=== PATIENT | female | born 1965 | race Caucasian/White ===

== ENCOUNTER 2017-02-06 12:13 | Emergency (ER) | payer BC ==
[2017-02-06] MEDS ORDERED: ASPIRIN 81 MG TAB.CHEW PO ONE (12:25)
[2017-02-06] MEDS ORDERED: ASPIRIN 81 MG TAB.CHEW ONE (12:34)
--- NOTE | 2017-02-06 12:37 | ERNOTE ---
Medical Problem HPI - Narrative Date of Service: 02/06/17 - General Time Seen by Provider: 02/06/17 12:15 Source: patient Exam Limitations: no limitations - Immun/Allergies/Home Medications Allergies/Adverse Reactions: Allergies No Known Allergies Allergy (Unverified 02/06/17 12:28) Home Medications: HOME MEDICATIONS Cyclobenzaprine HCl [Flexeril] 10 mg PO TID PRN #30 tab 02/06/17 [Last Taken Unknown] Naproxen [Naprosyn] 500 mg PO BID PRN #60 tab 02/06/17 [Last Taken Unknown] Sulfamethoxazole/Trimethoprim [Bactrim Ds] 1 tab PO BID #28 tab 02/06/17 [Last Taken Unknown] - History of Present History Narrative: Pt. comes in from [facility] with c/o L arm tingling with post neck and shoulder pain and L post rib pain. Pt. states that this has occurred for the past 24 hours and states that she has has L axillary fullness for a year without these other symptoms and was wondering if it is connected. At the [facility] pt. was hypertensive. Pt. denies any past history other than basal cell carcinoma of her L forearm. Review of Systems - Review of Systems Constitutional: Present: no symptoms reported. Absent: recent illness, fever, chills, weakness, fatigue EYE: Present: no symptoms reported ENT: Present: no symptoms reported Respiratory: Present: no symptoms reported. Absent: shortness of breath, cough , wheezing Cardiology: Present: no symptoms reported Gastrointestinal/Abdominal: Present: no symptoms reported Genitourinary: Present: no symptoms reported Musculoskeletal: Present: back pain - L post ribcage not reproducible, neck pain - posterior L, joint pain - L post shoulder Neurological: Present: tingling - L arm. Absent: weakness All Other Systems: All systems neg except as marked - Patient's Past Medical History Patient History - Medical: No pertinent hx Patient History - Cardiac/Respiratory: No pertinent hx Physical Exam - Physical Exam General Appearance: Present: wd/wn, alert, no apparent distress Head Exam: Present: normal inspection, no evidence of injury Eye Exam: Normal inspection: bilateral, PERRL: bilateral, EOMI: bilateral Ears, Nose, Throat: Present: normal ENT inspection, normal pharynx Neck: Present: normal inspection, nontender. Absent: lymphadenopathy (R), lymphadenopathy (L) Respiratory: Present: no respiratory distress, normal breath sounds, no accessory muscle use, chest nontender, lungs clear Cardiovascular/Chest: Present: regular rate, rhythm, no murmur, normal peripheral pulses Gastrointestinal/Abdominal: Present: normal bowel sounds, nontender, nondistended, soft, no organomegaly Back Exam: Present: normal inspection, normal range of motion, no CVA tenderness , no vertebral tenderness, other - no reproducible pain Extremity Exam: Present: non-tender, normal range of motion, other - L axillary edema not lymphadenopathy Neurological Exam: Present: alert, oriented, normal mood/affect, no motor/ sensory deficits Skin Exam: Present: normal color, warm/dry. Absent: pallor, skin rash ED Progress - Date and Time Seen: Date and Time: 02/06/17 16:[address] Bautista at [facility] and he agrees with POC and will see pt. when she makes appointment. - Results and Orders Patient's Lab Results:: I have reviewed the patient's lab results. - Vital Signs Patient's Vital Signs:: I have reviewed the patient's vital signs. - EKG EKG: NSR, nonspecific ST T wave changes EKG read: Reviewed by me EKG Comments: interp by Dr Pepper - X-Ray X-Ray #1 X-Ray: c-spine Interpretation: Reviewed by me X-ray Comments: IMPRESSION: 1. Mild prevertebral soft tissue prominence anterior to the C1-C2 level. Consider possible inflammatory arthropathy of the atlantodens interval, versus tendinitis of the longus coli muscle. In the setting of acute trauma, consider soft tissue/ligamentous injury. 2. C4-C5 and C6-C7 level degenerative disc disease. 3. HARPER image limited by positioning. 4. Left neural foraminal compromise by uncovertebral osteophytes at C5-C6. X-Ray #2 X-Ray: chest Interpretation: Reviewed by me X-ray Comments: no acute process - CT/Ultrasound CT/Ultrasound Narrative: US of venous and arterial system of MAURO arm without abnormality - Progress/Reassessment Progress:: Unchanged Departure - Departure Clinical Impression: Cervical radiculopathy at C6 UTI (urinary tract infection) Qualifiers: Urinary tract infection type: acute cystitis Hematuria presence: without hematuria Qualified Code(s): N30.00 - Acute cystitis without hematuria Disposition: Home self-care Condition: Good Instructions: Cervical Radiculopathy, [id number] Additional Instructions: If you do not hear from us please call Dr Pastor's office in [place] directly at [phone] Referrals: Estiven Pepper DO [Emergency Room Physician] - Prescriptions: Cyclobenzaprine HCl [Flexeril] 10 mg PO TID PRN #30 tab PRN Reason: MUSCLE SPASMS Naproxen [Naprosyn] 500 mg PO BID PRN #60 tab PRN Reason: Pain Sulfamethoxazole/Trimethoprim [Bactrim Ds] 1 tab PO BID #28 tab
[2017-02-06 12:44] LABS: Hematocrit 39.1 % (37.0-47.0); Hemoglobin 12.8 gm/dL (12.5-16.0); Mean Cell Volume 87.5 fl (78-100); Mean Corpuscular Hemoglobin 28.6 pg (27-31); Mean Corpuscular Hgb Conc 32.7 g/dl (32-36); Mean Platelet Volume 9.3 fl (6.0-9.5); Neutrophil # 4.1 K/mm3 (1.3-6.0); Neutrophil % 61.1 % (42-75.0); Platelet Count 270 K/mm3 (150-450); Red Blood Count 4.47 M/mm3 (4.2-5.4); Red Cell Distribution Width 12.4 % (11.5-14.0); White Blood Count 6.7 K/mm3 (4.0-10.5)
[2017-02-06 12:56] LABS: Urine Bilirubin Negative (NEGATIVE); Urine Ketone Negative (NEGATIVE); Urine Nitrite Negative (NEGATIVE); Urine Protein Negative (NEGATIVE); Urine Specific Gravity <=1.005 SP.GR. (1.005-1.010); Urine Urobilinogen Normal (NORMAL)
[2017-02-06 13:01] LABS: ALT 21 U/L (19-67); AST 16 U/L (0-48); Albumin * 4.1 gm/dl (3.4-5.0); Alkaline Phosphatase * 79 U/L (50-170); Anion Gap 15.8 mmol/L (6.8-13.8); BUN/Creatinine Ratio 11.7 (9.0-21.6); Bilirubin, Total 0.5 mg/dL (0.0-1.1); Blood Urea Nitrogen 7 mg/dL (3-23); Ca. Corrected For Albumin 8.7 mg/dL (8.4-10.2); Calcium * 9.1 mg/dL (7.9-10.9); Carbon Dioxide 26.5 mmol/L (24-32.6); Chloride 104 mmol/L (97-106); Glucose * 94 mg/dL (70-110); Potassium 3.3 mmol/L (3.4-4.6); Sodium 143 mmol/L (132-142); Total Protein 7.7 gm/dL (6.2-8.2); Troponin I Less than 0.017 ng/ml (0.00-0.10)
[2017-02-06 13:05] LABS: Urine Appearance Slightly Cloudy; Urine Bacteria 1+; Urine Blood 5 /ul (NEGATIVE); Urine Color Pale Yellow; Urine RBC 0-5 /hpf (0-5); Urine WBC 0-5 /hpf (0-5)
[2017-02-06] MEDS ORDERED: ORPHENADRINE CITRATE 30 MG/ML VIAL IM ONE (14:26)
[2017-02-06] MEDS ORDERED: KETOROLAC TROMETHAMINE 60 MG/2 ML VIAL IM ONE ×2 (14:26→14:27)
[2017-02-06] MEDS ORDERED: ORPHENADRINE CITRATE 30 MG/ML VIAL ONE (14:28)
[2017-02-06 15:04] VITALS: BP 140/87
== END 2017-02-06 15:04 | disposition home or self-care (01) ==
LOC: ER 12:13
DX: M54.12 Radiculopathy, cervical region (principal); N30.00 Acute cystitis without hematuria